=== PATIENT | male | born 1985 | race Caucasian/White ===

== ENCOUNTER 2018-02-11 08:02 | Emergency (ER) | payer OTHER ==
[~2018-02-11] VITALS: Ht 182.9 cm; Wt 72.7 kg
[~2018-02-11 08:02] MED LIST: EPIN0.3P3 IM
[2018-02-11] MEDS ORDERED: diphenhydrAMINE 50 mg/ml inj ONE (08:12)
[2018-02-11] MEDS ORDERED: normal saline 1000ML IV soln IVB STA (08:16)
[2018-02-11] MEDS ORDERED: famotidine/PF 10 mg/ml inj IV ONE (08:20)
[2018-02-11] MEDS ORDERED: methylPREDNISolone sod succ 125mg/2ml vial IV ONE (08:20)
[2018-02-11 08:31] VITALS: BP 126/79
[2018-02-11] MEDS ORDERED: EPIN0.3P8 IM (10:05)
== END 2018-02-11 10:10 | disposition home or self-care (01) ==
LOC: ER 08:03
DX: T63.441A Toxic effect of venom of bees, accidental (unintentional), initial encounter (principal); T78.40XA Allergy, unspecified, initial encounter; F12.90 Cannabis use, unspecified, uncomplicated; Z79.899 Other long term (current) drug therapy; Y92.89 Other specified places as the place of occurrence of the external cause
CPT/HCPCS: 96372; 96374; 96375; 99284; J1200; J2930; J3490; J7030